=== PATIENT | female | born 1980 | race Two or more races ===

== ENCOUNTER → 2020-12-01 | Outpatient (CLI) | payer BC ==
[2015-11-26 21:48] VITALS: BP 109/68
--- NOTE | 2020-12-01 10:46 | RAD ---
EXAM: Lumbar spine, 3 views. HISTORY: Pain. Radiculopathy. COMPARISON: None. FINDINGS: 3 views of the lumbar spine are obtained. There is no listhesis. The vertebral bodies are n ormal in height and the disc spaces are preserved. There is an incidental IUD overlying the right hem ipelvis. IMPRESSION: No acute osseous finding. Electronically signed by: Cassi Cervantes MD (12/01/2020 10:43 AM) [id number]
[2020-12-01 11:19] LABS: C-REACTIVE PROTEIN 1.5 mg/L (0-3.3); CALCIUM 8.3 mg/dL (8.5-10.1); CREATININE 0.5 mg/dL (0.6-1.0)
[2020-12-02 02:10] LABS: HEMOGLOBIN A1C 5.5 % (4.8-5.6)
[2020-12-02 19:14] LABS: ANA INTERP Negative (.)
== END ==
LOC: RAD 09:58
PROVIDERS: ATTEND Nurse Practitioner Family
DX: G57.31 Lesion of lateral popliteal nerve, right lower limb (principal); R20.0 Anesthesia of skin; R53.1 Weakness; M25.50 Pain in unspecified joint
CPT/HCPCS: 36415; 72100; 80048; 82607; 82746; 83036; 86038; 86140